=== PATIENT | male | born 1970 | race American Indian/Alaskan Native ===

== ENCOUNTER 2018-07-02 01:41 | Emergency (ER) | payer SELFPAY ==
[2018-07-02 02:46] LABS: Basophils # (Auto) 0.1 K/mm3 (0.0-0.1); Basophils % (Auto) 0.8 % (0.0-1.8); Eosinophils # (Auto) 0.4 K/mm3 (0.0-0.4); Eosinophils % (Auto) 5.5 % (0.0-4.3); Hematocrit 42.4 % (35.5-45.6); Hemoglobin 14.3 gm/dl (11.8-15.2); Lymphocytes # (Auto) 2.7 K/mm3 (1.2-5.4); Lymphocytes % (Auto) 34.2 % (13.4-35.0); Mean Corpuscular HGB Conc 34 % (32-34); Mean Corpuscular Volume 93 fl (84-94); Monocytes # (Auto) 0.6 K/mm3 (0.0-0.8); Monocytes % (Auto) 8.3 % (0.0-7.3); Platelet Count 345 K/mm3 (140-440); Red Blood Count 4.54 M/mm3 (3.65-5.03); Red Cell Distribution Width 13.3 % (13.2-15.2)
[2018-07-02 03:01] LABS: BUN/Creatinine Ratio 16; Blood Urea Nitrogen 11 mg/dL (9-20); Calcium 9.9 mg/dL (8.4-10.2); Hemolysis Index 4
[2018-07-02 04:17] LABS: Bilirubin,Urine NEG (Negative); Blood,Urine MOD (Negative); Color,Urine Yellow (Yellow); Mucus,Urine FEW /HPF; Protein,Urine <15 mg/dL mg/dL (Negative)
[2018-07-02 04:22] LABS: Benzodiazepines Screen,Urine PRESUMPTIVE NEGATIVE; Methadone Screen,Urine PRESUMPTIVE NEGATIVE; Opiate Screen,Urine PRESUMPTIVE NEGATIVE
[2018-07-02 04:57] LABS: Amphetamine Screen,Urine PRESUMPTIVE POSITIVE; Cannabinoid Screen,Urine PRESUMPTIVE POSITIVE; Cocaine Screen,Urine PRESUMPTIVE POSITIVE
--- NOTE | 2018-07-02 06:14 | Emergency Department Report ---
ED Psych HPI - General Chief Complaint: Medical Clearance Stated Complaint: MENTAL EVAL Time Seen by Provider: 07/02/18 06:12 Source: patient Mode of arrival: Ambulatory - History of Present Illness Initial Comments: 48-year-old male is requesting a long-term detox program for polysubstance abuse and alcohol. He states he drinks 12 beers a day. He states that he was once at [facility] in the [facility] for long-term detox. He would like to get into a long-term program now. He states he is currently homeless having left his cousin's house because it was "full of drugs". He states that he is depressed about his circumstances but not thinking about hurting himself or others. He has no hallucinosis. He has no symptoms of withdrawal. He is resting comfortably at the time of my encounter. He denies any prior medical history other than an old right arm injury. MD Complaint: other -: year(s) Associated Psychiatric Symptoms: depression History of same: No Quality: intermittent Improves With: none Worsens With: none Context: recent alcohol abuse, recent drug abuse Associated Symptoms: denies other symptoms - Related Data Previous Rx's Medication Instructions Recorded Last Taken Type Metaxalone [Skelaxin] 800 mg PO TID #15 tablet 01/08/16 Unknown Rx traMADol [Ultram] 50 mg PO Q6HR PRN #20 tablet 01/08/16 Unknown Rx Ibuprofen [Motrin] 600 mg PO Q8H PRN #20 tablet 07/01/18 Unknown Rx Allergies Allergy/AdvReac Type Severity Reaction Status Date / Time No Known Allergies Allergy Verified 09/29/14 13:35 ED Review of Systems ROS: Stated complaint: MENTAL EVAL Other details as noted in HPI Constitutional: denies: chills, fever Eyes: denies: eye pain, eye discharge, vision change ENT: denies: ear pain, throat pain Respiratory: denies: cough, shortness of breath, wheezing Cardiovascular: denies: chest pain, palpitations Endocrine: no symptoms reported Gastrointestinal: denies: abdominal pain, nausea, diarrhea Genitourinary: denies: urgency, dysuria Musculoskeletal: denies: back pain, joint swelling, arthralgia Skin: denies: rash, lesions Neurological: denies: headache, weakness, paresthesias Psychiatric: as per HPI, depression. denies: anxiety, auditory hallucinations, visual hallucinations, homicidal thoughts, suicidal thoughts Hematological/Lymphatic: denies: easy bleeding, easy bruising ED Past Medical Hx - Past Medical History Previous Medical History?: Yes Hx Hypertension: No Hx CVA: No Hx Heart Attack/AMI: No Hx Congestive Heart Failure: No Hx Diabetes: No Hx Deep Vein Thrombosis: No Hx Pulmonary Embolism: No Hx GERD: No Hx Liver Disease: No Hx Renal Disease: No Hx Sickle Cell Disease: No Hx Arthritis: No Hx Headaches / Migraines: No Hx Seizures: No Hx Kidney Stones: No Hx Psychiatric Treatment: No Hx Asthma: No Hx COPD: No Hx Tuberculosis: No Hx Dementia: No Hx HIV: No Additional medical history: polysubstance abuse - Surgical History Past Surgical History?: Yes Hx Coronary Stent: No Hx Open Heart Surgery: No Hx Pacemaker: No Hx Internal Defibrillator: No Hx Cholecystectomy: No Hx Appendectomy: No Hx Breast Surgery: No Additional Surgical History: Bilateral inguinal hernia repair 2004. right orchiectomy - Social History Smoking Status: Current Every Day Smoker Substance Use Type: Alcohol, Cocaine, Methamphetamines - Medications Home Medications: Home Medications Medication Instructions Recorded Confirmed Last Taken Type Metaxalone [Skelaxin] 800 mg PO TID #15 tablet 01/08/16 07/02/18 Unknown Rx traMADol [Ultram] 50 mg PO Q6HR PRN #20 tablet 01/08/16 07/02/18 Unknown Rx Ibuprofen [Motrin] 600 mg PO Q8H PRN #20 tablet 07/01/18 07/02/18 Unknown Rx ED Physical Exam - General Limitations: No Limitations General appearance: alert, in no apparent distress - Head Head exam: Present: atraumatic, normocephalic - Eye Eye exam: Present: normal appearance, PERRL, EOMI. Absent: scleral icterus - ENT ENT exam: Present: mucous membranes moist - Neck Neck exam: Present: normal inspection. Absent: tenderness, meningismus - Respiratory Respiratory exam: Present: normal lung sounds bilaterally. Absent: respiratory distress - Cardiovascular Cardiovascular Exam: Present: regular rate, normal rhythm. Absent: systolic murmur, diastolic murmur, rubs, gallop - GI/Abdominal GI/Abdominal exam: Present: soft, normal bowel sounds. 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 Absent: rash ED Course Vital Signs 07/02/18 01:56 Temperature 97.7 F Pulse Rate 90 Respiratory 20 Rate Blood Pressure 134/85 O2 Sat by Pulse 100 Oximetry - Reevaluation(s) Reevaluation #1: The patient is medically clear for a detox program. I do not know if an inpatient program is available. Mental health counselor will be consulted. 07/02/18 06:36 ED Medical Decision Making - Lab Data Result diagrams: 07/02/18 02:09 07/02/18 02:09 Laboratory Results - last 24 hr 07/02/18 07/02/18 07/02/18 02:09 02:09 02:09 WBC RBC Hgb Hct MCV MCH MCHC RDW Plt Count Lymph % (Auto) Emery % (Auto) Eos % (Auto) Baso % (Auto) Lymph # Emery # Eos # Baso # Seg Neutrophils % Seg Neutrophils # Sodium 137 Potassium 3.4 L Chloride 95.9 L Carbon Dioxide 29 Anion Gap 16 BUN 11 Creatinine 0.7 L Estimated GFR > 60 BUN/Creatinine Ratio 16 Glucose 93 Calcium 9.9 Urine Color Urine Turbidity Urine pH Ur Specific [place] Urine Protein Urine Glucose (UA) Urine Ketones Urine Blood Urine Nitrite Urine Bilirubin Urine Urobilinogen Ur Leukocyte Esterase Urine WBC (Auto) Urine RBC (Auto) Urine Mucus Salicylates < 0.3 L Urine Opiates Screen Urine Methadone Screen Acetaminophen < 5.0 L Ur Barbiturates Screen Ur Phencyclidine Scrn Ur Amphetamines Screen U Benzodiazepines Scrn Urine Cocaine Screen U Marijuana (THC) Screen Drugs of Abuse Note Plasma/Serum Alcohol 07/02/18 07/02/18 07/02/18 02:09 02:09 03:45 WBC 7.8 RBC 4.54 Hgb 14.3 Hct 42.4 MCV 93 MCH 32 MCHC 34 RDW 13.3 Plt Count 345 Lymph % (Auto) 34.2 Emery % (Auto) 8.3 H Eos % (Auto) 5.5 H Baso % (Auto) 0.8 Lymph # 2.7 Emery # 0.6 Eos # 0.4 Baso # 0.1 Seg Neutrophils % 51.2 Seg Neutrophils # 4.0 Sodium Potassium Chloride Carbon Dioxide Anion Gap BUN Creatinine Estimated GFR BUN/Creatinine Ratio Glucose Calcium Urine Color Yellow Urine Turbidity Clear Urine pH 5.0 Ur Specific [place] 1.010 Urine Protein <15 mg/dl Urine Glucose (UA) Neg Urine Ketones Neg Urine Blood Mod Urine Nitrite Neg Urine Bilirubin Neg Urine Urobilinogen 4.0 Ur Leukocyte Esterase Neg Urine WBC (Auto) 1.0 Urine RBC (Auto) 2.0 Urine Mucus Few Salicylates Urine Opiates Screen Urine Methadone Screen Acetaminophen Ur Barbiturates Screen Ur Phencyclidine Scrn Ur Amphetamines Screen U Benzodiazepines Scrn Urine Cocaine Screen U Marijuana (THC) Screen Drugs of Abuse Note Plasma/Serum Alcohol 0.03 07/02/18 03:45 WBC RBC Hgb Hct MCV MCH MCHC RDW Plt Count Lymph % (Auto) Emery % (Auto) Eos % (Auto) Baso % (Auto) Lymph # Emery # Eos # Baso # Seg Neutrophils % Seg Neutrophils # Sodium Potassium Chloride Carbon Dioxide Anion Gap BUN Creatinine Estimated GFR BUN/Creatinine Ratio Glucose Calcium Urine Color Urine Turbidity Urine pH Ur Specific [place] Urine Protein Urine Glucose (UA) Urine Ketones Urine Blood Urine Nitrite Urine Bilirubin Urine Urobilinogen Ur Leukocyte Esterase Urine WBC (Auto) Urine RBC (Auto) Urine Mucus Salicylates Urine Opiates Screen Presumptive negative Urine Methadone Screen Presumptive negative Acetaminophen Ur Barbiturates Screen Presumptive negative Ur Phencyclidine Scrn Presumptive negative Ur Amphetamines Screen Presumptive positive U Benzodiazepines Scrn Presumptive negative Urine Cocaine Screen Presumptive positive U Marijuana (THC) Screen Presumptive positive Drugs of Abuse Note Disclamer Plasma/Serum Alcohol Critical care attestation.: If time is entered above; I have spent that time in minutes in the direct care of this critically ill patient, excluding procedure time. ED Disposition Clinical Impression: Polysubstance abuse, Medical clearance for psychiatric admission Depression Qualifiers: Depression Type: unspecified Qualified Code(s): F32.9 - Major depressive disorder, single episode, unspecified Disposition: DC-01 TO HOME OR SELFCARE Is pt being admited?: No Does the pt Need Aspirin: No Condition: Stable Instructions: Methamphetamine Abuse (ED), Cocaine Abuse (ED), Depression (ED) Additional Instructions: Referral as per mental health counselor. Services are available at [facility] Department Referrals: PRIMARY CARE [Primary Care Provider] - 3-5 Days [facility] [Provider Group] - 3-5 Days [facility] [Outside] - 3-5 Days Time of Disposition: 06:38
[2018-07-02] MEDS ORDERED: K-DUR PO ONE (06:22)
--- NOTE | 2018-07-03 18:34 | Consultation ---
History of Present Illness - Reason for Consult Consult date: 07/03/18 Reason for consult: psychiatric evaluation - Chief Complaint Chief complaint: "I'm going to fing kill myself." - History of Present Psychiatric Illness 48 year old AA male seen for psychiatric evaluation in the ER. He is currently seeking treatment for addiction and mental health on a voluntary basis. On introduction, he began using profanity and expressed he was going to kill himself. He is asking for help with drug and alcohol addiction and depression. He reports helpless and hopeless ideation. He reports intermittent suicidal ideation but will not disclose a plan. He states he hears voices telling him to hurt himself and last experienced AH 2 days ago. He last used cocaine 2 days ago and says he uses every other day. Urine drug screen is positive for amphetamine, cocaine, and marijuana. He reports regular alcohol use, up to 12 beers daily. Blood alcohol level on arrival was 0.03 He denies sweats or tremors. He reports agitation, mood swings, and erratic sleep. Appetite is reported to be poor. Last inpatient treatment was [facility] in [place] 1 year ago He has a history of suicidal ideation but declines to discuss psych history any further. Medications and Allergies Allergies Allergy/AdvReac Type Severity Reaction Status Date / Time No Known Allergies Allergy Verified 09/29/14 13:35 Home Medications Medication Instructions Recorded Confirmed Last Taken Type Metaxalone [Skelaxin] 800 mg PO TID #15 tablet 01/08/16 07/02/18 Unknown Rx traMADol [Ultram] 50 mg PO Q6HR PRN #20 tablet 01/08/16 07/02/18 Unknown Rx Ibuprofen [Motrin] 600 mg PO Q8H PRN #20 tablet 07/01/18 07/02/18 Unknown Rx Past psychiatric history - Past Medical History Past Medical History: other (old right arm injury) - past Psychiatric treatment and history Psych: Addictions, Depression - Social History Social history: other (homeless, staying at cousin's house which is "full of drugs") Mental Status Exam - Vital signs Last Vital Signs Temp 98.3 F 07/03/18 09:38 Pulse 93 H 07/03/18 09:38 Resp 18 07/03/18 09:38 BP 111/71 07/03/18 09:38 Pulse Ox 99 01/06/19 09:38 - Exam Orientation: time, place, person Affect: depressed, agitated Mood: congruent with affect Thought content: other (suicidal ideation) Thought Process: Tangential Perceptions: none (AH 2 days ago, none currently) Speech: other (loud) Concentration: distractible Motor activity: restless Level of consciousness: alert Memory: Intact Sleep Symptoms: Difficulty Falling Asleep Interaction: irritable, guarded Results Result Diagrams: 07/02/18 02:09 07/02/18 02:09 All other labs normal. Assessment and Plan Assessment and plan: Impression: major depressive disorder, unspecified-reports suicidal ideation -reports auditory hallucinations, likely related to cocaine use,-resolved cocaine use disorder, severe r/o alcohol use disorder-no current withdrawal symptoms r/o bipolar disorder r/o schizophrenia r/o malingering Recommendation: consider SSRI. He was guarded and agitated during the interview. The treatment plan of 1013 and transfer to inpatient psychiatric facility was discussed. Plan to discuss meds at next interview. dispo: transfer to inpatient psychiatric facility will staff with Dr. Miley Núñez
[2018-07-03] MEDS: IBUPROFEN PO PRN (19:35)
[2018-07-03] MEDS: BENADRYL PO PRN (23:10)
[2018-07-03] MEDS ORDERED: BENADRYL PO ONE ×2 (23:11→23:13)
--- NOTE | 2018-07-04 10:56 | Progress Note ---
Subjective - Reason for Consult Consult date: 07/04/18 Reason for consult: Psychiatry Follow-up - Chief Complaint Chief complaint: "I'm done with drugs" 48 year old AA male seen for psychiatric evaluation in the ER. He is currently seeking treatment for addiction. Today the patient is calm and cooperative during the assessment. He stated that he was dx with depression several years ago. He rate his depression 8/10, with 10 being the worse. He stated that he want to stop using "drugs" because it's his "downfall." He stated relapsing in the past when discharged from a rehab facility. He stated that he isn't complaint with his medication for depression. He stated, "It's time for me to do something different." He would not confirm or deny SI's. He denies HI's and AVH's. Mental Status Exam - Vital signs Last Vital Signs Temp 97.8 F 07/04/18 01:52 Pulse 66 07/04/18 01:52 Resp 18 07/04/18 01:52 BP 105/79 07/04/18 01:52 Pulse Ox 99 07/03/18 19:30 - Exam Narrative exam: MSE: Appearance: calm, cooperative Behavior: regular eye contact Speech: regular rate and tone Mood: "depressed and sad" Affect: flat Thought Process: logical Thought Content: denies HI's and AVH's Motor Activity: sitting up in bed Cognition: A/O x 3 Insight: variable Judgment: poor Assessment and Plan Impression: MDD, Severe Type. Substance Use DO (cocaine/amphetamines). Cannabis Use DO. Today the patient is calm and cooperative during the assessment. The patient would not confirm or deny SI's. DDx: R/O Bipolar DO, Substance Induced Mood DO Recommendation/Plan: Continue 1013 and start Zoloft 50 mg PO HS for depression. Discussed possible sucidality/medication induced norbert with the patient reference Zoloft. Dispo: The patient was referred to inpatient psy services. Will staff with Dr. Miley Núñez
[2018-07-04] MEDS: ZOLOFT PO SCH (12:02)
[2018-07-04] MEDS: IBUPROFEN PO PRN (21:44)
[2018-07-04] MEDS: BENADRYL PO PRN (23:11)
--- NOTE | 2018-07-05 10:19 | Progress Note ---
Subjective - Reason for Consult Consult date: 07/05/18 Reason for consult: Psychiatry Follow-up - Chief Complaint Chief complaint: "I'm feeling better" 48 year old AA male seen for psychiatric evaluation in the ER. He is currently seeking treatment for addiction. Today the patient is calm and cooperative during the assessment. He stated that he is feeling better "mentally." He stated that he didn't get much sleep last night. He denies SI/HI's and AVH's. He denies any side effects of his medication. Mental Status Exam - Vital signs Last Vital Signs Temp 97.8 F 07/05/18 08:10 Pulse 60 07/05/18 08:10 Resp 18 07/05/18 08:10 BP 123/87 07/05/18 08:10 Pulse Ox 97 07/05/18 10:11 - Exam Narrative exam: MSE: Appearance: calm, cooperative Behavior: regular eye contact Speech: regular rate and tone Mood: "okay" Affect: congruent to mood Thought Process: linear Thought Content: denies SI/HI's and AVH's Motor Activity: sitting up in bed Cognition: A/O x 3 Insight: variable Judgment: variable Assessment and Plan Impression: MDD, Severe Type. Substance Use DO (cocaine/amphetamines). Cannabis Use DO. Today the patient is calm and cooperative during the assessment. DDx: R/O Bipolar DO, Substance Induced Mood DO Recommendation/Plan: Reevaluate 1013 in 24 hours and continue Zoloft 50 mg PO HS for depression and start Trazodone 50 mg PO HS PRN for sleep. Discussed possible suicidality/medication induced norbert with the patient reference antidepressants. Discussed possible priapism with the patient reference Trazodone. Dispo: If the patient's 1013 is rescinded, he can follow up with [facility] for outpatient psy/rehab services. Will staff with Dr. Simon Núñez
[2018-07-05] MEDS: ZOLOFT PO SCH ×3 (11:40→13:07)
[2018-07-05] MEDS: IBUPROFEN PO PRN (15:14)
[2018-07-05] MEDS ORDERED: DESYREL PO PRN (22:00)
[2018-07-05] MEDS: BENADRYL PO PRN (22:38)
[2018-07-06 03:14] VITALS: BP 119/61
[2018-07-06] MEDS: ZOLOFT PO SCH (11:00)
== END 2018-07-06 20:05 | disposition home or self-care (01) ==
LOC: EEVIPCON 01:41 → ED 01:41
DX: F32.9 Major depressive disorder, single episode, unspecified (principal); F19.10 Other psychoactive substance abuse, uncomplicated; F17.200 Nicotine dependence, unspecified, uncomplicated
CPT/HCPCS: 36415; 80048; 80307; 81001; 85025; 99285; G0480; 80320